=== PATIENT | male | born 1970 | race African-American/Black ===

== ENCOUNTER 2017-07-04 18:37 | Day surgery (SDC) | payer OTHER ==
[2017-07-04] MEDS ORDERED: LIDOCAINE 2% 100 MG/5 ML SYR ONE ×2 (19:10→19:34)
[2017-07-04] MEDS ORDERED: PHENYLEPHRINE 10 MG/ML SDV ONE (19:12)
--- NOTE | 2017-07-04 19:35 | EDPHY ---
H & P Stated Complaint: priapism Time Seen by Provider: 07/04/17 18:40 - Personal History Current Tetanus Diphtheria and Acellular Pertussis (TDAP): Unsure - Medical/Surgical History Hx Asthma: No Hx Chronic Respiratory Disease: No Hx Diabetes: No Hx Cardiac Disease: No Hx Renal Disease: No Hx Cirrhosis: No Hx Alcoholism: No Hx HIV/AIDS: No Hx Splenectomy or Spleen Trauma: No Other PMH: HTN, iv drug abuse - Social History Smoking Status: Former smoker Constitutional: Initial Vital Signs Temperature (C) 36.7 C 07/04/17 18:46 Heart Rate 52 L 07/04/17 18:46 Respiratory Rate 16 07/04/17 18:46 Blood Pressure 183/97 H 07/04/17 18:46 O2 Sat (%) 96 07/04/17 18:46 O2 Delivery Mode Room Air Allergies/Adverse Reactions: Penicillins Allergy (Mild, Verified 07/04/17 20:57) Itching trazodone Allergy (Verified 07/04/17 19:45) Home Medications: Medication Instructions Recorded [facility] 07/14/09 Medical Decision Making ED Course/Re-evaluation: CHIEF COMPLAINT: Priapism HISTORY OF PRESENT ILLNESS: This patient is a 46 year old male presenting with priapism onset two days ago, 07/02/17. He denies any prior occurrence of priapism. His erection began on the morning of 07/02. He is currently incarcerated, and reported his condition to the detention nurse the next day, 07/03. He takes Trazodone as well as medication for hyperlipidemia and hypertension. Priapism is a known side effect of Trazodone. He has not taken any erectile dysfunction medication. The nurse instructed him to discontinue Trazodone and take a different oral medication to relieve his priapism. Today, he presents to the emergency department with continued symptoms. Additionally, has noted muscle spasms around his rectal area. He denies history of sickle cell anemia, hematologic malignancy, or clotting disorders. He assures me he has never had similar symptoms in the past. No fever , recent trauma, urinary complaints. REVIEW OF SYSTEMS: A 10 point review of systems was performed and is negative with the exception of the elements mentioned in the history of present illness. PHYSICAL EXAM: HR, BP, O2 Sat, RR. Temp noted General Appearance: Alert, well hydrated, appropriate, and non-toxic appearing. Head: Atraumatic without scalp tenderness or obvious injury Eyes: Pupils equal, round, reactive to light and accommodation, EOMI, no trauma , no injection. Ears: Clear bilaterally, no perforation, normal landmarks Nose: Atraumatic, no rhinorrhea, clear. Throat: There is no erythema or exudates, no lesions, normal tonsils, mucus membranes moist. Neck: Supple, 2+ carotid upstroke, nontender, no lymphadenopathy. Respiratory: No retractions, no distress, no wheezes, and no accessory muscle use. Lungs are clear to auscultation bilaterally. Cardiovascular: Regular rate and rhythm, no murmurs, rubs, or gallops. Bilateral carotid, radial, dorsalis pedis, and posterior tibial pulses intact. Good capillary refill all extremities. Gastrointestinal: Abdomen is soft, nontender, non-distended, no masses, no rebound, no guarding, no peritoneal signs. Musculoskeletal: Normal active ROM of all extremities, atraumatic. Neurological: Alert, appropriate, and interactive. The patient has normal DTRs and non-focal cranial nerves, motor, sensory, and cerebellar exam. Skin: No rashes, good turgor, no nodules on palpation. Past medical history: Hypertension. History of IV drug abuse. Past surgical history: Noncontributory. Family history: Noncontributory. Social history: Currently incarcerated at [facility]. Swing Grinder escort at bedside. DIAGNOSTICS/PROCEDURES/CRITICAL CARE TIME: 19:22 Priapism reduction procedure: Therapeutic aspiration with irrigation, intracavernous injection of phenylephrine. Risks, benefits, alternatives discussed with the patient including but not limited to bleeding, infection. Consent was obtained. Sterile technique was used sterile gloves, sheet, hand washing. The area was anesthetized with 300mg 2 % lidocaine. Two 14 gauge angio-catheters were placed at the base of the penis. Multiple saline flushes were performed with drainage of dark blood and clots. Administered 30mg phenylephrine in 500mcg units over the course of the procedure. An additional six 14 gauge catheters were placed for a total of eight. The patient's priapism was reduced several times, but refilled with blood shortly after. The patient tolerated the procedure well, but ultimately he will be transferred to the operating room for definitive care. The procedure was performed by myself. DIFFERENTIAL DIAGNOSIS: Differential diagnosis for the patient's priapism includes sickle cell anemia, erectile dysfunction medication, medication side effect, drug side effect, genitourinary trauma. MEDICAL DECISION MAKIN46 y/o male presents with 60 hour history of priapism. Plan to consult with urology. 19:[address] Heredia, urologist. Given the patient's prolonged duration of priapism, phenylephrine may not relieve the condition. Dr. Heredia recommends I attempt the procedure, and if it is not successful, Dr. Heredia will take the patient to the operating room. Patient report history of diabetes mellitus. Plan for BGL. BGL 141. 19:22 Discussed procedure risk and benefits. See procedure note above for details. Plan to admit for continued observation. 19:50 Blood has begun to reaccumulate. 19:[address] Heredia. He will likely take the patient to the operating room for further intervention. 20:00 Patient's priapism reduced again, but began to reaccumulate blood shortly after procedure. 20:[address] Vieira, hospitalist. He accepts admission for postoperative management of priapism. Dr. Heredia will take the patient to the OR at this time. - Data Points Laboratory Results: 07/04/17 19:20 POC Glucose 141 mg/dL H mg/dL (70-100) Medications Given: Discontinued Medications Lidocaine HCl (Lidocaine Hcl 2%) 300 ml IF ONCE ONE Stop: 07/04/17 19:46 Last Admin: 07/04/17 19:56 Dose: 300 ml Midazolam HCl (Versed) 2 mg IVP ONCALL ONE Stop: 07/04/17 20:40 Last Admin: 07/04/17 20:49 Dose: 2 mg Phenylephrine HCl (Neosynephrine) 20 mcg IF EDNOW ONE Stop: 07/04/17 19:49 Last Admin: 07/04/17 19:56 Dose: 20 mcg Phenylephrine HCl (Neosynephrine) 10 mcg IF EDNOW ONE Stop: 07/04/17 19:57 Last Admin: 07/04/17 19:57 Dose: 10 mcg Point of Care Test Results: 07/04/17 19:20 POC Glucose 141 H Departure - Departure Disposition: [facility] Acute Clinical Impression: Priapism, drug-induced Condition: Fair Additional Instructions: Ice to genital area 20 min on, 20 min off as needed for swelling You make take ibuprofen for pain Referrals: NONE *PRIMARY CARE P,. [Primary Care Provider] - As per Instructions Tyson Heredia MD [Medical Doctor] - follow up in 2 weeks Report Scribed for: Shola Wright Report Scribed by: Yanet Taylor Date of Report: 07/04/17 Time of Report: 19:41
[2017-07-04] MEDS ORDERED: LIDOCAINE 2% 2 ML INJ IF ONE (19:45)
[2017-07-04] MEDS ORDERED: PHENYLEPHRINE HCL 100 MCG/ML SYR IF ONE ×2 (19:48→19:56)
[2017-07-04] MEDS ORDERED: BACITRACIN ZINC 14.2 GM OINTTUBE TP ONE (20:15)
[2017-07-04] MEDS ORDERED: LIDOCAINE 2% JELLY 20 ML (UROJECT) ONE (20:16)
[2017-07-04] MEDS ORDERED: BUPIVACAINE 0.25% 30 ML SDV ONE (20:16)
--- NOTE | 2017-07-04 20:36 | PDANEPAE ---
ANE Past Medical History - Cardiovascular History Hx Hypertension: Yes Hx Arrhythmias: No Hx Chest Pain: No Hx Coronary Artery / Peripheral Vascular Disease: No Hx CHF / Valvular Disease: No Hx Palpitations: No - Pulmonary History Hx COPD: No Hx Asthma/Reactive Airway Disease: No Hx Recent Upper Respiratory Infection: No Hx Oxygen in Use at Home: No Hx Sleep Apnea: No - Endocrine History Hx Diabetes: Yes Hypothyroid: No Hyperthyroid: No Obesity: no - GI History GERD: no Hx Gastrointestinal Disorders: No - Surgical History Prior Surgeries: NONE ANE Review of Systems Review of Systems: - Exercise capacity METS (RN): 5 METS - Systems Constitutional: Reports: no symptoms EENMT: Reports: no symptoms Cardiac: Reports: no symptoms Respiratory: Reports: no symptoms Gastrointestinal: Reports: no symptoms Genitourinary: Reports: other Muscolosketal: Reports: no symptoms Skin: Reports: no symptoms Neurological: Reports: no symptoms Hematologic/Lymphatic: Reports: no symptoms Immunologic/Allergy: Reports: no symptoms ANE Patient History - Allergies Allergies/Adverse Reactions: Penicillins Allergy (Verified 07/14/09 19:00) trazodone Allergy (Verified 07/04/17 19:45) - Home Medications Home Medications: Prozac 07/14/09 [Last Taken Unknown] - NPO status NPO Since - Liquids (Date): 07/04/17 NPO Since - Liquids (Time): 17:00 NPO Since - Solids (Date): 07/04/17 NPO Since - Solids (Time): 17:00 - Smoking Hx Smoking Status: Current every day smoker - Alcohol Use Alcohol Use: Occasionally - Family Anes Hx Family Anes Hx: neg - N/A ANE Labs/Vital Signs - Vital Signs Blood Pressure: 172/96 Heart Rate: 53 Respiratory Rate: 14 O2 Sat (%): 95 Height: 180.34 cm Weight: 86.183 kg ANE Physical Exam - Airway Neck exam: FROM Mallampati Score: Class 2 Mouth exam: normal dental/mouth exam - Pulmonary Pulmonary: no respiratory distress, no rales or rhonchi, clear to auscultation - Cardiovascular Cardiovascular: regular rate and rhythym, no murmur, rub, or gallop - ASA Status ASA Status: II, E ANE Anesthesia Plan Anesthesia Plan: general endotracheal anesthesia Total IV Anesthesia: No
[2017-07-04] MEDS ORDERED: ceFAZolin 2 GM/SWFI 20 ML SYR IVP ONE (20:39)
[2017-07-04] MEDS ORDERED: MIDAZOLAM 2 MG/2 ML VIAL IVP ONE (20:39)
[2017-07-04] MEDS ORDERED: ceFAZolin 2 GM in NS 100 ML IV ONE (20:44)
[2017-07-04] MEDS ORDERED: PROPOFOL 200 MG/20 ML VIAL ONE (20:45)
[2017-07-04] MEDS ORDERED: fentaNYL 100 MCG/2 ML INJ ONE ×2 (20:45→22:20)
[2017-07-04] MEDS ORDERED: SUCCINYLCHOLINE CHLORIDE 200 MG/10 ML SYR IVP ONE (20:46)
[2017-07-04] MEDS ORDERED: MIDAZOLAM 2 MG/2 ML VIAL ONE (20:46)
[2017-07-04] MEDS ORDERED: ROCURONIUM 50 MG/5 ML VIAL ONE (20:46)
[2017-07-04] MEDS ORDERED: LIDOCAINE 2% 5 ML SDV ONE (20:48)
--- NOTE | 2017-07-04 20:49 | PDGENHP ---
History and Physical - Chief Complaint priapism - History of Present Illness 46 y/o AAM in residential taking trazodone as sleep aid with 2 days of priapism. Painful. No prior episodes. No h/o sickle cell. Failed phenylephrine in ER. No urinary symptoms. No trauma History Information - Allergies/Home Medication List Allergies/Adverse Reactions: Penicillins Allergy (Verified 07/14/09 19:00) trazodone Allergy (Verified 07/04/17 19:45) Home Medications: Prozac 07/14/09 [Last Taken Unknown] I have personally reviewed and updated: family history, medical history, social history, surgical history - Past Medical History diabetes type 2, hypertension - Surgical History Reports: no pertinent surgical hx - Social History Smoking Status: Current every day smoker Alcohol Use: Occasionally Review of Systems Review of Systems: ROS: 10pt was reviewed & negative except for what was stated in HPI & below Physical Exam Physical Exam: Temp Pulse Resp BP Pulse Ox 37.7 C 53 L 14 172/96 H 95 07/04/17 20:05 07/04/17 20:39 07/04/17 20:39 07/04/17 20:39 07/04/17 20:39 Constitutional: appears nourished Eyes: PERRL, anicteric sclera Ears, Nose, Mouth, Throat: hearing normal Cardiovascular: regular rate and rhythym Respiratory: no respiratory distress Gastrointestinal: soft, non-tender abdomen Genitourinary: other (tender erect penis) Skin: warm, normal color Neurologic: AAOx3 Psychiatric: interacting appropriately Lab Data & Imaging Review POC Glucose 141 mg/dL (70-100) H 07/04/17 19:20 Assessment & Plan Assessment: Priapism, drug-induced (Acute) Plan: To OR for corporocavernosal shunt. Discussed procedure in detail including risks, benefits, and alternatives. Explained that he is likely to have some corporal fibrosis and good possibility of intermodal dispatcher ED issues. Also discussed risks of recurrence, anesthesia, bleeding, infection, etc.
[2017-07-04] MEDS ORDERED: KETOROLAC 30 MG/1 ML SDV ONE (20:51)
[2017-07-04] MEDS ORDERED: ceFAZolin 2 GM/SWFI 2 GM/20 ML SYR IVP ONE (21:00)
[2017-07-04] MEDS ORDERED: LR 500 ML IV PRN (21:12)
[2017-07-04] MEDS ORDERED: NALOXONE HCL 0.4 MG/ML INJ IVP PRN (21:12)
[2017-07-04] MEDS ORDERED: OXYCODONE/APAP 5/325 TAB PO PRN (21:12)
[2017-07-04] MEDS ORDERED: ONDANSETRON 4 MG/2 ML VIAL IVP PRN (21:12)
[2017-07-04] MEDS ORDERED: HYDROCODONE/APAP 5/325 TAB PO PRN (21:12)
[2017-07-04] MEDS ORDERED: PROMETHAZINE HCL 25 MG/ML INJ IVP PRN (21:12)
[2017-07-04] MEDS ORDERED: ACETAMINOPHEN 500 MG TAB PO PRN (21:12)
--- NOTE | 2017-07-04 21:25 | POSTOPPROG ---
Post Op Note Date of Operation: 07/04/17 Surgeon: Tyson Heredia Anesthesia: GET(General Endotracheal) Pre-op Diagnosis: ischemic priapism Post-op Diagnosis: same Procedure: distal corporal cavernosal shunt Findings: priapism Inf/Abcess present in the surg proc area at time of surgery?: No EBL: Minimal Specimen(s): none
[2017-07-04] MEDS: fentaNYL 100 MCG/2 ML INJ IVP PRN ×2 (22:22→22:39)
[2017-07-04] MEDS ORDERED: OXYCODONE/APAP 5/325 TAB ONE (22:41)
--- NOTE | 2017-07-04 22:48 | POSTANESTH ---
Post Anesthetic Evaluation Cardiovascular Status: Normal, Stable Respiratory Status: Normal, Stable Level of Consciousness/Mental Status: Can Participate in Eval Pain Control: Adequate, Prn Tx Ordered Nausea/Vomiting Control: Adequate, Prn Tx Ordered Complications Possibly Related to Anesthesia: None Noted
--- NOTE | 2017-07-04 22:48 | GOP ---
[f rep st] OPERATIVE REPORT DATE OF OPERATION: 07/04/2017 SURGEON: Mello Heredia MD PROCEDURAL NURSE: None. PREOPERATIVE DIAGNOSIS: Ischemic priapism. POSTOPERATIVE DIAGNOSIS: Ischemic priapism. PROCEDURE PERFORMED: Distal corpus cavernosal shunt. FINDINGS: INDICATIONS: The patient is a 46-year-old gentleman who is currently incarcerated. He was taking tr azodone for sleep. He developed a hard erection but failed to report to the ER for approx imately 2 days. In the emergency room, Dr. Wright attempted corporal irrigation with phenylephrine with some success. However, patient still had some evidence of persistent erection, and therefore I recommended operative intervention. Preoperatively, I had a lengthy discussion of risks, benefits, a nd alternatives of the surgery. I did explain that the prolonged period of his ischemic priapism was likely to make it so he will have difficulty with erections and corporal fibrosis in the future. Richie ambrose did provide informed consent. DESCRIPTION OF PROCEDURE: After informed consent was obtained, he was taken to the operating room wh ere he was given general anesthesia. His genitals were prepped and draped in sterile fashion. A Fol ey catheter was placed to demarcate the urethra. A 17 blade was used to puncture the glans in a vert ical fashion. It was advanced into the left corpus, rotated 90 degrees, and then withdrawn. Copious amounts of dark blood were found which were drained. The penis was milked to get the old blood out. I then proceeded to watch the penis for a few minutes to make sure he did not have a recurrence. I then closed the glans incision using two 4-0 interrupted sutures. I again watched for several minut es to make sure that the priapism did not return. Seeing that it did not, I placed a dry gauze. He was reversed from anesthesia and sent to recovery in stable condition. There were no noted complicat ions. Estimated blood loss 30 mL. No specimens. /[id number]/MODL
[2017-07-04 23:24] VITALS: TEMP 98.6
[2017-07-05 00:17] VITALS: BP 128/72; PULSE 52; RESP 16; O2SAT 98
== END 2017-07-05 00:30 ==
LOC: EEVIPCON 18:37 → UNDOADMOB 19:54 → FSGY 20:18
PROVIDERS: ATTEND Urology
PROC: 0V9S0ZZ Drainage of Penis, Open Approach (ICD-10-PCS; principal; 2017-07-04 20:30)
DX: N48.33 Priapism, drug-induced (principal); T43.215A Adverse effect of selective serotonin and norepinephrine reuptake inhibitors, initial encounter; I10 Essential (primary) hypertension; E78.5 Hyperlipidemia, unspecified; E11.9 Type 2 diabetes mellitus without complications; F19.21 Other psychoactive substance dependence, in remission; F17.210 Nicotine dependence, cigarettes, uncomplicated; Z88.0 Allergy status to penicillin
CPT/HCPCS: J0330; J0690; J1885; J2001; J2250; J2370; J2704; J3010

== ENCOUNTER 2017-07-05 02:41 | Emergency (ER) | payer OTHER ==
--- NOTE | 2017-07-05 03:00 | EDPHY ---
H & P Stated Complaint: repeat priapism Time Seen by Provider: 07/05/17 02:53 HPI/ROS: Chief Complaint: Priapism HPI: 46-year-old male was seen yesterday evening with priapism which was associated with trazodone he was taking for sleep. Was taken to the operating room by Dr. Heredia for a shunt placement. Patient states that shortly after leaving the hospital he began to regain his erection. He is continuing to have an erect penis since that time. It is not painful at this time. He is being brought in for further evaluation. He does not have a history of sickle cell disease. ROS: 10 point Review of Systems is negative except as noted in the HPI. Social History: Positive smoking Family History: non-contributory Physical Exam: Gen: Awake, Alert, No Distress HEENT: Nose: no rhinorrhea Eyes: PERRLA, EOMI Mouth: Moist mucosa Neck: Supple, no JVD Chest: nontender, lungs clear to auscultation Heart: S1, S2 normal, no murmur Abd: Soft, non-tender, no guarding General: Patient has a painless erection. Incision sites have no discharge or erythema. Nontender Back: no CVA tenderness, no midline tenderness Ext: no edema, non-tender Skin: no rash Neuro: CN II-XII intact, Sensation grossly intact, Strength 5/5 in bilateral upper and lower extremities - Personal History Current Tetanus/Diphtheria Vaccine: Yes Current Tetanus Diphtheria and Acellular Pertussis (TDAP): Yes - Medical/Surgical History Hx Asthma: No Hx Chronic Respiratory Disease: No Hx Diabetes: No Hx Cardiac Disease: No Hx Renal Disease: No Hx Cirrhosis: No Hx Alcoholism: No Hx HIV/AIDS: No Hx Splenectomy or Spleen Trauma: No Other PMH: HTN, iv drug abuse - Social History Smoking Status: Former smoker Constitutional: Initial Vital Signs Temperature (C) 36.5 C 07/05/17 02:55 Heart Rate 54 L 07/05/17 02:55 Respiratory Rate 18 07/05/17 02:55 Blood Pressure 123/72 H 07/05/17 02:55 O2 Sat (%) 96 07/05/17 02:55 O2 Delivery Mode Room Air Allergies/Adverse Reactions: Penicillins Allergy (Mild, Verified 07/04/17 20:57) Itching trazodone Allergy (Verified 07/04/17 19:45) Home Medications: Medication Instructions Recorded Prozac 07/14/09 Lisinopril 07/05/17 Losartan Potassium 07/05/17 Medical Decision Making ED Course/Re-evaluation: I have discussed with Dr. Heredia, urologist. He states that as erection is not painful patient does not require any further surgical treatment. His rec shins likely secondary to fibrosis. He is requesting the patient be admitted to the medicine service and he will consult on the patient in the morning. I have discussed with Dr. Johnston, hospitalist. He will admit to his service in anticipation of Urology evaluation Departure - Departure Disposition: [facility] Acute Clinical Impression: Priapism, drug-induced Condition: Fair Referrals: NONE *PRIMARY CARE P,. [Primary Care Provider] - As per Instructions
[2017-07-05] MEDS ORDERED: ONDANSETRON 4 MG/2 ML VIAL IVP PRN (03:26)
[2017-07-05] MEDS ORDERED: ACETAMINOPHEN 325 MG TAB PO PRN (03:26)
[2017-07-05] MEDS ORDERED: ONDANSETRON DISINTEGRATING 4 MG TAB PO PRN (03:26)
--- NOTE | 2017-07-05 04:22 | PDGENHP ---
History and Physical - Chief Complaint Priapism - History of Present Illness 46 yo M w/ hx of NIDDM and HTN presents with priapism. Patient was seen earlier in the day for the same and was taken to the ED by Dr. Heredia from urology. Shunt was placed and he was discharged back to long term. He presents again with persistent erection. He denies pain or other symptoms. He denies personal or family history of sickle cell disease. He takes trazodone for sleep. Urology service has requested admission for observation and consultation in the morning. History Information - Allergies/Home Medication List Allergies/Adverse Reactions: Penicillins Allergy (Mild, Verified 07/04/17 20:57) Itching trazodone Allergy (Verified 07/04/17 19:45) Home Medications: Prozac 07/14/09 [Last Taken Unknown] Lisinopril 07/05/17 [Last Taken Unknown] Losartan Potassium 07/05/17 [Last Taken Unknown] I have personally reviewed and updated: family history, medical history - Past Medical History diabetes type 2, hypertension - Surgical History Reports: no pertinent surgical hx - Family History Additional family history: Denies family hx of sickle cell - Social History Smoking Status: Former smoker Review of Systems Review of Systems: ROS: 10pt was reviewed & negative except for what was stated in HPI & below Physical Exam Physical Exam: Temp Pulse Resp BP Pulse Ox 36.5 C 54 L 18 123/72 H 96 07/05/17 02:55 07/05/17 02:55 07/05/17 02:55 07/05/17 02:55 07/05/17 02:55 Constitutional: no apparent distress, not in pain Eyes: PERRL, EOMI Ears, Nose, Mouth, Throat: moist mucous membranes, no oral mucosal ulcers Cardiovascular: regular rate and rhythym, systolic murmur Respiratory: no respiratory distress, clear to auscultation Gastrointestinal: normoactive bowel sounds, soft, non-tender abdomen Genitourinary: other (Erection present) Skin: warm, normal color Musculoskeletal: full muscle strength, no muscle tenderness Neurologic: AAOx3, CN II-XII Intact Psychiatric: interacting appropriately, not anxious Assessment & Plan Assessment: 46 yo M w/ NIDDM and HTN presents with priapism. Plan: 1. Priapism - Likely CR from trazodone. No personal or family hx of sickle cell and no ED drugs taken recently. Shunt placed by Dr. Heredia earlier in the day but symptoms persist, he is pain free currently. - Admit for observation - Urology consulted, appreciate assistance 2. NIDDM - Patient not on treatment, will check BMP and treat if indicated. 3. HTN - Patient reports being on lisinopril and losartan, which would be an odd combination. Would allow pharmacy to confirm and maybe discontinue one agent. Diet - Regular Code - Full Ppx - SCDs Dispo - Admit under observation status
--- NOTE | 2017-07-05 09:37 | PDCONSULT ---
Equipment Maintenance Tech Note: CC: penile pain HPI- See prior consult from yesterday. 2 day h/o priapism after trazodone. Had distal shunt last night with detumescence. Pt returned to intermediate but came back to the ER due to persistent firmness. Pt able to void. Has perineal pain and penile discomfort but not to the degree as before. No hematuria. No fevers. Please see prior consult/H&P for remaining medical history. PE AOx4 abd soft, nt, nd penis firm but pliable. Able to fully bend from base, mid, and distal. Glans suture in place. Corpora are firm but not erect. A/P s/p distal shunt for priapism. He does not have recurrent priapism. 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 This is evident but the ability to bend the penis in multiple planes. It will likely be several days before his penis softens. Recommend ice, rest and nsaids. Can be discharged from urology standpoint with these recommendations.
[2017-07-05] MEDS ORDERED: IBUPROFEN 200 MG TAB PO ONE (10:22)
[2017-07-05] MEDS ORDERED: ACETAMINOPHEN 500 MG TAB PO ONE (10:22)
[2017-07-05 10:37] VITALS: BP 130/74
--- NOTE | 2017-07-05 10:42 | PDDCSUM ---
Discharge Summary Discharge Summary: Admit and discharge 07/05/17 Consultations: urology Procedures: none Discharge diagnosis: # priapism: presumed to be 2/2 adverse drug event related to trazodone. Initial visit to ER with shunt placed by ER and achieved some level of detumescence and while penis still firm per urology this will relax in time. # dispo: dc back to halfway Patient will f/u with halfway physician
== END 2017-07-05 10:38 ==
LOC: EEVIPCON 02:41 → UNDOADMOB 03:26
DX: N48.33 Priapism, drug-induced (principal); T43.215A Adverse effect of selective serotonin and norepinephrine reuptake inhibitors, initial encounter
CPT/HCPCS: 99285; G0378